=== PATIENT | male | born 1970 | race Caucasian/White ===

== ENCOUNTER 2024-07-05 09:56 | Day surgery (SDC) | payer BC, OTHER ==
[2024-07-05] MEDS: Glucagon,Human Recombinant 1 MG Vial IVPUSH ONE (10:30)
[2024-07-05] MEDS: Sodium Chloride 0.9% 10 ML Syringe FLUSH PRN (10:30)
[2024-07-05] MEDS: Metoclopramide 10 MG/2 ML SDV IVPUSH ONE (10:30)
[2024-07-05] MEDS ORDERED: Lactated Ringers 1,000 ML IV ONE (11:40)
[2024-07-05] MEDS ORDERED: Metoclopramide 10 MG/2 ML SDV IVPUSH ONE (12:50)
[2024-07-05] MEDS ORDERED: Ondansetron 4 MG/2 ML SDV IVPUSH ONE (12:50)
[2024-07-05] MEDS ORDERED: Dexamethasone 4 MG/ML SDV ONE (12:56)
[2024-07-05] MEDS ORDERED: Succinylcholine 200 MG/10 ML MDV ONE (12:56)
[2024-07-05] MEDS ORDERED: Ondansetron 4 MG/2 ML SDV ONE (12:56)
[2024-07-05] MEDS ORDERED: fentaNYL 100 MCG/2 ML SDV ONE (12:56)
[2024-07-05] MEDS ORDERED: Propofol 200 MG/20 ML SDV ONE (12:56)
== END 2024-07-05 14:00 | disposition home or self-care (01) ==
LOC: JD.ED 09:56 → EDBD 09:56 → JD.SDS 11:39 → MERGE 11:39 → JD.SDS 14:00
PROVIDERS: ATTEND Surgery
DX: K31.89 Other diseases of stomach and duodenum (principal); K20.90 Esophagitis, unspecified without bleeding; T18.128A Food in esophagus causing other injury, initial encounter; Z88.0 Allergy status to penicillin; Z79.899 Other long term (current) drug therapy
CPT/HCPCS: 43239; 43247; 96374; 96375; 99284; J0330; J1100; J1610; J2405; J2704; J2765; J3010; J3490; J7120; 00731; 99140